=== PATIENT | female | born 1950 | race Caucasian/White ===

== ENCOUNTER 2016-08-09 14:13 | Outpatient (CLI) | payer OTHER ==
--- NOTE | 2016-08-09 15:55 | DIAGNOSTIC IMAGING REPORT ---
PROCEDURE: XR LUMBAR SPINE 2 OR 3 VIEWS INDICATION: LOW BACK PAIN, L HIP PAIN TECHNIQUE: Three views. COMPARISON: None. FINDINGS: Severe spondylosis L1-2, L2-3, L3-4, L4-5, and L5-S1. At L5-S1 there is a grade 1 spondylosis listhesis. No evidence of an acute process or fracture. IMPRESSION: 1. Severe spondylosis L1-S1
--- NOTE | 2016-08-09 16:00 | DIAGNOSTIC IMAGING REPORT ---
PROCEDURE: XR HIP 2VW W W/O AP PELVIS-LT INDICATION: LOW BACK PAIN, L HIP PAIN TECHNIQUE: AP view of the pelvis and hips with lateral view of the left hip. COMPARISON: Lumbar spine films same day FINDINGS: Left HIP: There is osteoarthritis with the joint space narrowing and osteophyte formation. PELVIS: Osseous pelvis is normal. IMPRESSION: 1. Negative pelvis and osteoarthritis left hip.
== END 2016-08-09 23:00 ==
LOC: XR SRH 14:13
DX: M47.817 Spondylosis without myelopathy or radiculopathy, lumbosacral region (principal); M25.552 Pain in left hip